=== PATIENT | female | born 2000 | race Two or more races ===

== ENCOUNTER 2024-10-10 14:05 | Emergency (ER) | payer OTHER ==
[~2024-10-10] VITALS: Ht 157.5 cm; Wt 88.0 kg
--- NOTE | 2024-10-10 15:25 | ED.PDOC ---
History of Present Illness HPI Comments 24 y/o F presents with c/o abnormal vaginal bleeding, today. Patient endorses on being 13x weeks , with her 2nd ([id number]) and noticing blood when using her bathroom's toiled and wiping at around 1240, this afternoon. She admits being stressed after her first child fell of the bed and having sexual intercourse with her partner, yesterday night. She denies any abdominal pain, nausea, vomiting, weakness, lightheadedness, or other associated symptoms or modifiers at this time. Chief Complaint: Vaginal Bleed Time Seen by MD: 14:55 Primary Care Provider: Otis Reviewed Notes: Nurses Notes, Medications, Allergies Allergies: Coded Allergies: NO KNOWN ALLERGIES (Unverified , 10/10/24) Home Meds Active Scripts Cephalexin (KEFLEX CAPSULE) 250 Mg Cp, 250 MG PO QID for 5 Days, #20 BOTTLE Prov:RAGHAV BAIN MD 10/10/24 Information Source: Patient Mode of Arrival: Ambulatory Severity: Moderate Past Medical History PAST MEDICAL HISTORY: Denies Surgical History: Denies all surgeries RADIATOR CLEANER History: No Pertinent RADIATOR CLEANER History Family History Family History: Unknown Social History Smoker: Non-Smoker Alcohol: Denies ETOH Use Drugs: Denies Drug Use Lives In: Home Genitourinary: reports: abnormal vagina bleeding All Other Systems: Reviewed and Negative (negative unless otherwise stated above or in HPI) Physical Exam General Appearance: Moderate Distress HEENT: Normal ENT Inspection, Pharynx Normal, TMs Normal Neck: Full Range of Motion, Non-Tender, Normal, Normal Inspection Respiratory: Chest Non-Tender, Lungs Clear, No Accessory Muscle Use, No Respiratory Distress, Normal Breath Sounds Cardiovascular: No Edema, No JVD, No Murmur, No Gallop, Normal Peripheral Pulses, Regular Rate/Rhythm Breast Exam: Deferred Gastrointestinal: No Organomegaly, Non Tender, No Pulsatile Mass, Normal Bowel Sounds, Soft Genitalia: Deferred Pelvic: Deferred Rectal: Deferred Extremities: No calf tenderness, Normal capillary refill, Normal inspection, Normal range of motion, Non-tender, No pedal edema Musculoskeletal : Apperance: Normal Neurologic: Alert, spine specialist II-XII nml as Tested, No Motor Deficits, Normal Affect, Normal Mood, No Sensory Deficits Cerebellar Function: Normal Reflexes: Normal Skin: Dry, Normal Color, Warm Peripheral Pulses: 3+ Radial (R), 3+ Radial (L) Lymphatic: No Adenopathy Was a procedure done? Was a procedure done?: No Differential Dx Considerations may include: menorrhea, dysmenorrhea, vaginitis, cystitis, threatened , at-risk X-Ray, Labs, Meds, VS Vital Signs Date Time Temp Pulse Resp B/P (MAP) Pulse Ox O2 Delivery O2 Flow Rate FiO2 10/10/24 14:17 98.0 78 18 109/59 (76) 99 Lab Test 10/10/24 15:45 10/10/24 14:15 Range/Units Beta HCG, Quantitative 28651.7 H 1.5-4.2 mIU/mL Urine Color Light-yellow Yellow Urine Clarity Clear Clear Urine pH 6.5 5.0-9.0 Urine Specific [place] 1.011 1.001-1.035 Urine Protein Negative Negative Urine Ketones Negative Negative Urine Blood Negative Negative /uL Urine Nitrite Negative Negative Urine Bilirubin Negative Negative Urine Urobilinogen Normal Negative mg/dL Urine Leukocyte Esterase Trace Negative /uL Urine RBC 1 0 - 4 /hpf Urine WBC 1 0 - 5 /hpf Urine Squamous Epithelial Cells Few <5 /hpf Urine Bacteria None seen None Seen /hpf Urine Glucose Normal Normal mg/dL Patient alert. Came in because of vaginal spotting. Vitals stable. Answering all questions. No sign of distress. UA shows mild UTI. Ultrasound reveals normal . Was given prescription of Keflex antibiotic. Explained to the patient. Was told to follow up with her OBGYN. Was told to follow up with her primary care physician. Was told to come back if there is any problem. Time of 1ST Reevaluation: 15:25 Reevaluation 1ST: Unchanged Patient Education/Counseling: Diagnosis, Treatment Family Education/Counseling: No Family Present Departure 1 Departure Time of Disposition: 16:21 Impression: Primary Impression: Normal Qualified Codes: Z34.90 - Encounter for supervision of normal , unspecified, unspecified trimester Additional Impression: UTI (urinary tract infection) Qualified Codes: N30.00 - Acute cystitis without hematuria Disposition: 01 HOME / SELF CARE / HOMELESS Condition: Good e-Prescriptions Cephalexin (KEFLEX CAPSULE) 250 Mg Cp 250 MG PO QID for 5 Days, #20 BOTTLE Prov: RAGHAV BAIN MD 10/10/24 Discharged With: Self Critical Care Note Critical Care Time?: No Stability Stability form required: No Heart Score Heart Score: Heart Score Response (Comments) Value History N/A 0 EKG N/A 0 Age N/A 0 Risk Factors N/A 0 Troponin N/A 0 Total 0 I personally scribed for RAGHAV BAIN MD ([email or web address]) on 10/10/24 at 15:25. Electronically submitted by Neftaly Dumont ([email or web address]). RAGHAV BAIN MD Oct 10, 2024 15:25
[2024-10-10 15:34] LABS: Urine Bacteria None Seen /hpf (None Seen)
[2024-10-10 15:44] LABS: Urine Blood Negative /uL (Negative); Urine Clarity Clear (Clear); Urine Color Light-Yellow (Yellow); Urine Protein, UAD Negative (Negative); Urine Specific Gravity 1.011 (1.001-1.035); Urine Squamous Epithelial Cell FEW /hpf (<5); Urine Urobilinogen Normal (Negative); Urine WBC 1 /hpf (0 - 5); Urine pH 6.5 (5.0-9.0)
--- NOTE | 2024-10-10 15:51 | DVH ---
EXAM: US OB ULTRASOUND COMP LESS 14WKS CLINICAL HISTORY: spotting COMPARISON: None TECHNIQUE: Grayscale, color-flow Doppler, and spectral Doppler ultrasound of the pelvis is performed by transabdominal technique. Findings: Single live intrauterine with gestational sac, yolk sac and embryo visualized. heart rate of 149 bpm. Estimated gestational age 13 weeks 0 days based on parameters including crown- rump length of 7.7 cm. Uterus measures 14.7 x 5.5 x 7.9 cm in size. Cervical os appears closed. 1.8 x 0.7 x 2.0 cm subchorionic hemorrhage. Right ovary measures 2.6 x 2.4 x 2.7 cm. Left ovary not visualized. Normal right ovarian color Dopple r flow. No free fluid within the cul-de-sac. Impression: 1. Single live intrauterine with heart rate of 149 bpm. Estimated gestational age 13 weeks 0 days with estimated date of confinement 04/17/2025. 2. Small subchorionic hemorrhage. Cervical os appears closed. 3. Right ovary is grossly unremarkable.
[2024-10-10] MEDS ORDERED: CEPH250C PO (16:22)
[2024-10-10 17:07] VITALS: BP 114/64; PULSE 69; RESP 16; TEMP 98.1; O2SAT 100
== END 2024-10-10 17:14 | disposition home or self-care (01) ==
LOC: ER 14:05
DX: O20.9 Hemorrhage in early pregnancy, unspecified (principal); O23.41 Unspecified infection of urinary tract in pregnancy, first trimester; N39.0 Urinary tract infection, site not specified; R10.2 Pelvic and perineal pain; Z3A.13 13 weeks gestation of pregnancy
CPT/HCPCS: 36415; 76801; 81001; 84702